=== PATIENT | female | born 1995 | race Two or more races ===

== ENCOUNTER 2024-04-11 13:31 | Emergency (ER) | payer OTHER, SELFPAY ==
[2024-04-11 13:32] VITALS: BP 106/67; PULSE 120; RESP 20; TEMP 39.5; O2SAT 99; BMI 19.5
[2024-04-11 14:06] LABS: Absolute Lymphocyte Count 0.63 X10^3/uL (0.83-4.51); Absolute Neutrophil Count 5.9 X10^3/uL (2.0-7.7); Basophil# 0.03 X10^3/uL; Basophil% 0.4 % (0-1); Eosinophil# 0.02 X10^3/uL; Eosinophils% 0.3 % (0-5); Hematocrit 38.9 % (37-47); Hemoglobin 13.3 g/dL (12.0-15.0); Lymphocyte # 0.63 X10^3/ul (0.83-4.51); Lymphocyte % 9.2 % (19-41); Mean Corp Hgb Conc 34.2 g/dL (32-36); Mean Corpuscular Hgb 27.6 pg (27.0-32.0); Mean Corpuscular Volume 80.7 fL (81-99); Mean Platelet Vol. 11.2 fl (6.2-12.0); Monocyte# 0.28 X10^3/uL; Monocyte% 4.1 % (0-10); NRBC Flagged by Analyzer 0 % (0-5); Neutrophil # 5.87 X10^3/uL (2.7-7.7); Neutrophil % 85.7 % (47-70); Platelet Count 196 K/mm3 (150-450); RBC Distribution Width CV 12.5 % (11.6-14.6); RBC Distribution Width SD 36.9 fl (35.1-43.9); Red Blood Count 4.82 M/mm3 (4.2-5.4); White Blood Count 6.9 K/mm3 (4.4-11.0)
[2024-04-11 14:20] LABS: Anion Gap 7 (5-15); BUN 8 mg/dL (7-18); BUN/Creat Ratio 8.2 RATIO (10-20); Calcium,Total 8.8 mg/dL (8.5-10.1); Chloride 106 mmol/L (98-107); Creatinine, Serum 0.98 mg/dL (0.55-1.02); EST Glomerular Filtration Rate 72 mL/min (>60); Est Glom Filt Rate - Afr Amer 88 mL/min (>60); Glucose 95 mg/dL (74-106); Potassium 3.1 mmol/L (3.5-5.1); Sodium Level 138 mmol/L (136-145)
--- NOTE | 2024-04-11 14:24 | RAD_ITS ---
PROCEDURE: CHEST 1 VIEW (PORTABLE) REASON FOR EXAM: Fever cough and dizziness. TECHNIQUE: Frontal view of the chest. COMPARISON: None FINDINGS: The heart size is normal. The lungs are clear. RAD/Chest 1 View (Portable) IMPRESSION: NEGATIVE CHEST. Reading Location: [place] [id number]
[2024-04-11 15:10] VITALS: BP 119/78; PULSE 103; RESP 14; TEMP 38.8; O2SAT 100
--- NOTE | 2024-04-11 15:18 | EX.ED.DYSGE1 ---
HPI History of Present Illness Chief Complaint: Dizziness Narrative Narrative: Chief complaint and HPI: Flulike symptoms. 29-year-old female with past medical history of gastric ulcer presents for evaluation of bodyaches, fever, cough, weakness, and intermittent lightheadedness. Onset of symptoms was several days ago. Associated symptoms are nausea and emesis. Patient states she last took ibuprofen yesterday evening. She has not taken anything for her cough or OTC's cold medicine. Patient denies that she knows of. She denies any neck pain, shortness of breath, chest pain, abdominal pain. Review of systems: See HPI Medications: As listed on the chart Allergies: As listed on the chart PFSH: Per chart Vital signs: As listed on the chart. Reviewed. Physical exam: Gen: A&O x3, NAD Head: Normocephalic, atraumatic Eyes: No sclera icterus, conjunctiva clear, PERRL, EOMI ENT: Moist mucous membranes, posterior oropharynx unremarkable, uvula midline, tonsils not enlarged, no tonsillar exudates Neck: Trachea midline, No JVD, Full ROM, No meningismus CV: RRR, no murmurs, no peripheral edema Resp: Lungs CTA BL, no w/r/c GI: Abd soft, non-distended, non-tender, no r/r/g Musc: Full ROM, no deformity Skin: Warm, dry, no rash Neuro: Alert, oriented, grossly intact, sensation intact Psych: Cooperative, appropriate mood and affect [facility] Medical History (Updated 04/11/24 @ 18:[address] Miles Osborne, ) History of vaginal delivery Home Medications ?Medication ?Instructions ?Recorded ?Last Taken ?Type ondansetron 4 mg disintegrating 4 mg PO Q8H PRN PRN Nausea #10 tabs 04/11/24 Unknown Rx tablet Allergy/AdvReac Type Severity Reaction Status Date / Time No Known Allergies Allergy Verified 04/11/24 13:32 Social History Smoking Status: Never smoker EXAM Physical Exam Const Vital Signs: 04/11/24 13:32 04/11/24 15:10 04/11/24 15:37 Temperature 103.1 F H 101.8 F H Temperature Source Oral Oral Pulse Rate 120 H 103 H 110 H Respiratory Rate 20 H 14 22 H Blood Pressure 106/67 119/78 116/76 Blood Pressure Mean 80 91 89 Pulse Ox 99 100 100 Oxygen Delivery Method Room Air Room Air Room Air 04/11/24 16:58 04/11/24 17:43 04/11/24 18:09 Temperature 100.1 F H 99.2 F H Temperature Source Oral Pulse Rate 98 96 94 Respiratory Rate 16 13 18 Blood Pressure 111/76 95/58 L 104/66 Blood Pressure Mean 87 70 78 Pulse Ox 97 98 98 Oxygen Delivery Method Room Air Room Air MDM MDM MDM Narrative Medical decision making narrative: 29-year-old female with past medical history of gastric ulcer presents for evaluation of bodyaches, fever, cough, weakness, and intermittent lightheadedness. Differential diagnosis includes but is not limited to influenza, COVID-19, RSV, other viral illness, dehydration. Nursing protocol orders were placed in triage. They had resulted by the time I saw the patient. CBC without leukocytosis or anemia. BMP without ALIDA but shows mild hypokalemia of 3.1. Chest x-ray reviewed, see below. On presentation to the emergency department patient had a temperature of 103.1 ?F. Her temperature is now 101.8. She is mildly tachycardic at 103. Suspect this is secondary to her fever. NS bolus, Tylenol, Zofran, p.o. potassium ordered for symptoms and lab results. Will add on COVID, flu, RSV as well as urine and urine . UA negative for UTI but shows mild dehydration. negative. Patient is positive for influenza. On reevaluation, patient's fever has improved. She was educated on Motrin and Tylenol as needed for fever. She was given Zofran prescription for intermittent nausea. Follow-up with PCP. Return precautions explained. She can understanding of the plan. Diagnostic: Interpreted by me/EM physician: Chest x-ray without pneumonia, effusion, cardiomegaly, pneumothorax Impression: 1. Influenza A 2. Fever Lab Data Labs: Laboratory Results - last 24 hr 04/11/24 04/11/24 13:53 16:00 WBC 6.9 RBC 4.82 Hgb 13.3 Hct 38.9 MCV 80.7 L MCH 27.6 MCHC 34.2 RDW Std Deviation 36.9 RDW Coeff of Ben 12.5 Plt Count 196 MPV 11.2 Immature Gran % (Auto) 0.300 Neut % (Auto) 85.7 H Lymph % (Auto) 9.2 L [place] % (Auto) 4.1 Eos % (Auto) 0.3 Baso % (Auto) 0.4 Absolute Neuts (auto) 5.9 Absolute Lymphs (auto) 0.63 L Nucleated RBC % 0 Sodium 138 Potassium 3.1 L Chloride 106 Carbon Dioxide 25.0 Anion Gap 7 BUN 8 Creatinine 0.98 Estim Creat Clear Calc 74.60 Est GFR (MDRD) Af Amer 88 Est GFR (MDRD) Non-Af 72 BUN/Creatinine Ratio 8.2 L Glucose 95 Calcium 8.8 Urine Color Yellow Urine Clarity Sl. Cloudy Urine pH 6.0 Ur Specific [place] 1.010 Urine Protein 15 H Urine Glucose (UA) Normal Urine Ketones 50 H Urine Occult Blood 50 H Urine Nitrite Negative Urine Bilirubin Negative Urine Urobilinogen Normal Ur Leukocyte Esterase 500 H Urine RBC 0 SEEN Urine WBC 0-5 SEEN Ur Squamous Epith Cells 0 SEEN Urine Bacteria 1+ Urine Mucus 0 SEEN Urine Test Negative Radiography Diagnostic Testing: Clinical Impression(s) from Imaging Studies Chest X-Ray 04/11/24 14:24 IMPRESSION: NEGATIVE CHEST. Reading Location: [place] [id number] Discharge Plan Triage Chief Complaint: Dizziness ED Provider: Miles Osborne Dx/Rx/DC Orders Clinical Impression: Influenza A Instructions: The Flu (Influenza) Prescriptions: New ondansetron 4 mg tablet,disintegrating 4 mg PO Q8H PRN PRN (Reason: Nausea) Qty: 10 0RF Primary Care Provider: Care Physician,No Primary Referrals: Kyle Perkins MD [Med Staff - Active Staff] - 3-5 Days Care Physician,No Primary [Primary Care Provider] - Activity Restrictions/Additional Instructions: Follow-up with your primary care physician. If you do not have 1 follow-up with the 1 provided above. You were given Tylenol and ibuprofen here in the emergency department. No Tylenol for 6 hours. No ibuprofen for 4 hours. Make sure you are drinking plenty of fluids over the next several days. Return back to the ED if symptoms change or worsen. Zofran prescription sent. Print Language: Syriac Disposition Disposition: Home, Self Care Discharge Date/Time: 04/11/24 18:30
[2024-04-11 15:37] VITALS: BP 116/76; PULSE 110; RESP 22; O2SAT 100
[2024-04-11] MEDS: 0.9% Normal Saline (1000mL) 1,000 ML 1000 ML IV (15:47)
[2024-04-11] MEDS: Acetaminophen 500 MG Tablet 1000 MG PO (15:47)
[2024-04-11] MEDS: Potassium Chloride Oral Soln 20 MEQ/15 ML UDC 40 MEQ PO (15:48)
[2024-04-11] MEDS: Ondansetron 4 MG/2 ML Vial IV (15:48)
[2024-04-11 16:07] LABS: Mucous, Urine 0 SEEN /hpf (<or=2+); Red Blood Cells-Urine 0 SEEN /hpf (0-5); Squamous Epithelial Cells - UA 0 SEEN /hpf (5-10)
[2024-04-11 16:20] LABS: Color, Urine Yellow (Yellow); Glucose, Dipstick Normal (Normal); Ketone-Dipstick 50 mg/dl (Negative); Leukocyte Esterase-Dipstick 500 /ul (Negative); Nitrite-Dipstick Negative (Negative); Occult Blood-Urine 50 /ul (Negative); Protein-Dipstick 15 mg/dl (Negative); Urine Bilirubin Dipstick Negative (Negative); Urine Clarity Sl. Cloudy (Clear); Urine Urobilinogen Normal (Normal)
[2024-04-11 16:58] VITALS: BP 111/76; PULSE 98; RESP 16; O2SAT 97
[2024-04-11 17:11] LABS: Bacteria 1+ /hpf (None Seen); Internal QC Validated? YES +Cl - CLEAR BKGD; Pregnancy, Urine Negative Negative; White Blood Cells 0-5 SEEN /hpf (0-5)
[2024-04-11 17:43] VITALS: BP 95/58; PULSE 96; RESP 13; TEMP 37.8; O2SAT 98
[2024-04-11 18:09] VITALS: BP 104/66; PULSE 94; RESP 18; TEMP 37.3; O2SAT 98
[2024-04-11] MEDS: Ibuprofen 200 MG Tablet 400 MG PO (18:28)
== END 2024-04-11 18:30 | disposition home or self-care (01) ==
PROVIDERS: Emergency Provider Surgery; Referring Provider Surgery; Visit Provider Surgery
DX: J10.1 Influenza due to other identified influenza virus with other respiratory manifestations (principal); E86.0 Dehydration; R11.2 Nausea with vomiting, unspecified; E87.6 Hypokalemia
CPT/HCPCS: 71045; 80048; 81001; 81025; 85025; 87086; 87631; 96361; 96374; 99285; A4216; J2405